=== PATIENT | male | born 1975 | race Caucasian/White ===

== ENCOUNTER 2022-03-25 02:06 | Emergency (ER) | payer MEDICAID ==
[~2022-03-25] VITALS: Ht 175.3 cm; Wt 79.5 kg
[2022-03-25] MEDS ORDERED: AMOXICILLIN/POTASSIUM CLAVULANATE 875/125MG TAB PO ONE (04:00)
[2022-03-25] MEDS ORDERED: METRONIDAZOLE 500MG TABLET PO ONE (04:00)
[2022-03-25] MEDS ORDERED: AMOXICILLIN/POTASSIUM CLAVULANATE 875/125MG TAB PO NR (04:30)
[2022-03-25] MEDS ORDERED: METRONIDAZOLE 500MG TABLET PO NR (04:30)
[2022-03-25 04:51] LABS: BASOPHILS % 0.4 % (0.0-2.0); EOSINOPHILS % 2.1 % (0.0-5.0); HEMATOCRIT. 43.9 % (42.0-52.0); HEMOGLOBIN. 15.3 g/dL (14.0-18.0); LYMPHOCYTES % 17.3 % (20.0-50.0); MEAN CORPUSCULAR HEMOGLOBIN 30.5 pg (28.0-32.0); MEAN CORPUSCULAR VOLUME 87.7 fL (80.0-94.0); MEAN PLATELET VOLUME 8.7 fl (7.4-10.4); MONOCYTES % 7.2 % (2.0-8.0); PLATELET 274 x1000/uL (130-400); RED BLOOD CELL COUNT 5.01 mill/uL (4.7-6.1); RED CELL DISTRIBUTION WIDTH 12.2 % (11.6-14.6)
[2022-03-25 04:54] LABS: CHLORIDE 104 mEq/L (98-107)
[2022-03-25] MEDS ORDERED: AMOX1TAB16 MT (05:27)
[2022-03-25] MEDS ORDERED: METR-167 MT (05:27)
[2022-03-25 05:50] VITALS: BP 121/81
== END 2022-03-25 05:50 | disposition home or self-care (01) ==
LOC: ER 02:06
DX: K61.1 Rectal abscess (principal)
CPT/HCPCS: 36415; 80053; 83605; 85025; 99283

== ENCOUNTER 2022-05-12 20:10 | Emergency (ER) | payer MEDICAID, OTHER ==
[~2022-05-12] VITALS: Ht 175.3 cm; Wt 82.0 kg
[~2022-05-12 20:10] MED LIST: AMOX1TAB16 MT; METR-167 MT
[2022-05-12 20:14] VITALS: BP 184/115
== END 2022-05-12 22:30 | disposition left against medical advice (07) ==
LOC: ER 20:10
DX: Z53.21 Procedure and treatment not carried out due to patient leaving prior to being seen by health care provider (principal)
CPT/HCPCS: 93005; 99281

== ENCOUNTER 2023-03-09 17:07 | Emergency (ER) | payer OTHER ==
[~2023-03-09] VITALS: Ht 175.3 cm; Wt 81.0 kg
[2023-03-09 17:16] VITALS: BP 144/97; PULSE 103; RESP 16; TEMP 97.9; O2SAT 99
== END 2023-03-09 23:54 | disposition left against medical advice (07) ==
LOC: ER 17:07
DX: M25.512 Pain in left shoulder (principal); Z53.21 Procedure and treatment not carried out due to patient leaving prior to being seen by health care provider
CPT/HCPCS: 99281

== ENCOUNTER 2023-06-02 09:59 | Emergency (ER) | payer OTHER ==
[~2023-06-02] VITALS: Ht 175.3 cm; Wt 84.1 kg
[2023-06-02 10:15] VITALS: BP 147/101; PULSE 98; RESP 18; TEMP 98.5; O2SAT 98
== END 2023-06-02 13:55 | disposition home or self-care (01) ==
LOC: ER 09:59
DX: K61.0 Anal abscess (principal)
CPT/HCPCS: 99281